=== PATIENT | female | born 1965 | race Caucasian/White ===

== ENCOUNTER 2016-11-29 12:33 | Inpatient (IN) | payer OTHER ==
[~2016-11-29] VITALS: Ht 157.5 cm; Wt 70.7 kg
[~2016-11-29 12:33] MED LIST: ADVIL COLD &1 TABLET; COUMADIN5 MG PO; ELIQUIS5 MG PO; LOVENOX80 MG/0.8 SC; NICOTINE PATCH1 EAC2 TD; TYLENOL WITH C1 EACH PO
[2016-11-29 13:09] LABS: BASOPHIL COUNT 0.1 K/uL (0-0.1); EOSINOPHIL (%) 3.6 % (0-5); EOSINOPHIL COUNT 0.3 K/uL (0-0.3); HEMATOCRIT 43.8 % (36.0-46.0); IMMATURE GRANULOCYTE (%) 0.3 % (0.0-0.7); INSTRUMENT ABS NEUTROPHIL CT 4.9 K/uL; LYMPHOCYTE COUNT 1.5 K/uL (1.0-2.8); MCH 29.8 PG (29.0-34.0); MCHC 33.8 G/DL (30.0-36.0); MCV 88.1 FL (83-99); MEAN PLAT.VOLUME 10.7 uM^3 (9.5-12.4); MONOCYTE (%) 7.1 % (3-12); MONOCYTE COUNT 0.5 K/uL (0-0.8); NEUTROPHIL (%) 67.2 % (45-76); NEUTROPHIL COUNT 4.9 K/uL (1.8-6.4); PLATELET COUNT 199 K/uL (156-360); RBC DIS.WIDTH-CV 12.9 % (11.8-14.6); RBC DIS.WIDTH-SD 41.6 % (39-53); RED BLOOD COUNT 4.97 M/uL (3.80-5.20); WHITE BLOOD COUNT 7.3 K/uL (4.1-10.2)
[2016-11-29 13:17] LABS: CHLORIDE 110 mEq/L (99-109); POTASSIUM 4.4 mEq/L (3.7-5.4); SODIUM 141 mEq/L (136-147)
[2016-11-29 13:19] LABS: GLUCOSE 74 mg/dL (70-99)
[2016-11-29 13:21] LABS: ANION GAP 6 MEQ/L (2-14)
[2016-11-29 13:23] LABS: GFR ESTIMATE (CALCULATED) > 59 mL/min/
[2016-11-29 13:24] LABS: UREA NITROGEN (BUN) 12 mg/dL (9-23)
[2016-11-29 13:28] LABS: INTER. NORMALIZED RATIO 1.1; PROTHROMBIN TIME 11.5 (9.2-11.2); PTT 29.2 (25-32)
[2016-11-29 13:29] LABS: TROP-I INTERPRETATION NEGATIVE; TROPONIN-I < 0.01 ng/mL (0.0-0.30)
[2016-11-29] MEDS ORDERED: TRAMADOL HCL50 MG PO (15:21)
[2016-11-29] MEDS ORDERED: ELIQUIS5 MG PO (15:21)
[2016-11-29] MEDS ORDERED: VENTOLIN HFA18 GM IH (15:26)
[2016-11-29] MEDS ORDERED: GABAPENTIN100 MG PO (15:27)
[2016-11-29] MEDS ORDERED: DULOXETINE HCL30 MG PO (15:29)
[2016-11-29 18:57] LABS: HDL CHOLESTEROL 58 MG/DL (Desirable>=50); LDL CHOLESTEROL 75 mg/dL (Desirable<100); NON-HDL CHOLESTEROL 85 mg/dL (Desirable<160); TOTAL CHOLESTEROL 143 mg/dL (Desirable<200); TRIGLYCERIDES 49 MG/DL (Normal: <150)
[2016-11-29 19:22] VITALS: BP 153/72; BP 172/97
[2016-11-29 19:27] LABS: Estimated Average Glucose 114 mg/dL (70-123); HEMOGLOBIN A1c (GLYCOHEMOGLOB) 5.6 % HGB (Below 5.7)
[2016-11-29 19:46] VITALS: BP 121/67
[2016-11-29 23:41] VITALS: BP 126/74
[2016-11-30 03:51] VITALS: BP 111/67
[2016-11-30 07:42] VITALS: BP 112/74
[2016-11-30 08:06] LABS: HEMATOCRIT 45.9 % (36.0-46.0); MCH 29.7 PG (29.0-34.0); MCHC 33.6 G/DL (30.0-36.0); MCV 88.6 FL (83-99); MEAN PLAT.VOLUME 11.2 uM^3 (9.5-12.4); PLATELET COUNT 194 K/uL (156-360); RBC DIS.WIDTH-CV 12.6 % (11.8-14.6); RBC DIS.WIDTH-SD 41.4 % (39-53); RED BLOOD COUNT 5.18 M/uL (3.80-5.20); WHITE BLOOD COUNT 6.3 K/uL (4.1-10.2)
[2016-11-30 11:00] VITALS: BP 129/77
[2016-11-30 16:32] VITALS: BP 132/89
[2016-11-30 19:03] VITALS: BP 146/80
== END 2016-11-30 19:57 | disposition left against medical advice (07) | DRG 547 ==
LOC: EME 12:33 → EDOF 16:41 → 5SOUTH 18:14
PROVIDERS: Emergency Medicine; Family Medicine Sports Medicine
DX: M35.3 Polymyalgia rheumatica (principal); M25.50 Pain in unspecified joint; M54.16 Radiculopathy, lumbar region; M54.12 Radiculopathy, cervical region; F17.210 Nicotine dependence, cigarettes, uncomplicated; Z86.718 Personal history of other venous thrombosis and embolism; J44.9 Chronic obstructive pulmonary disease, unspecified; I10 Essential (primary) hypertension; E78.5 Hyperlipidemia, unspecified; Z86.711 Personal history of pulmonary embolism; J45.909 Unspecified asthma, uncomplicated; Z79.01 Long term (current) use of anticoagulants; G89.4 Chronic pain syndrome; N61.1 Abscess of the breast and nipple
CPT/HCPCS: 70450; 70551; 71010; 72141; 72142; 72148; 80048; 80061; 83036; 84484; 85025; 85027; 85610; 85651; 85730; 86038; 86140; 93005; 93880; 93971; 99281; 99285